=== PATIENT | male | born 1955 | race Caucasian/White ===

== ENCOUNTER 2017-06-01 16:55 | Emergency (ER) | payer OTHER ==
[2017-06-01] MEDS: KETOROLAC 30 MG INJ IM (19:07)
== END 2017-06-01 21:01 | disposition home or self-care (01) ==
LOC: FTE 16:55
DX: S42.212A Unspecified displaced fracture of surgical neck of left humerus, initial encounter for closed fracture (principal); I10 Essential (primary) hypertension; E11.9 Type 2 diabetes mellitus without complications; F17.210 Nicotine dependence, cigarettes, uncomplicated; W18.39XA Other fall on same level, initial encounter; Y92.9 Unspecified place or not applicable; Z79.82 Long term (current) use of aspirin; Z79.84 Long term (current) use of oral hypoglycemic drugs
CPT/HCPCS: 29105; 73000; 73030; 73080-LT; 73110-LT; 96372; 99284-25